=== PATIENT | male | born 1990 | race Caucasian/White ===

== ENCOUNTER 2018-09-20 08:26 | Inpatient (IN) | payer OTHER ==
[2018-09-20 08:57] VITALS: BMI 38.9
--- NOTE | 2018-09-20 08:58 | HP ---
CIWA Score Nausea/Vomitin Muscle Tremors: 2 Anxiety: 3 Agitation: 2 Paroxysmal Sweats: 1-Minimal Palms Moist Orientation: 0-Oriented Tacttile Disturbances: 1-Very Mild Itch/Numbness Auditory Disturbances: 1-Very Mild Visual Disturbances: 0-None Headache: 2-Mild CIWA-Ar Total Score: 14 - Admission Criteria OASAS Guidelines: Admission for Medically Managed Detox: Requires at least one of the followin. CIWA greater than 12 2. Seizures within the past 24 hours 3. Delirium tremens within the past 24 hours 4. Hallucinations within the past 24 hours 5. Acute intervention needed for co occurring medical disorder 6. Acute intervention needed for co occurring psychiatric disorder 7. Severe withdrawal that cannot be handled at a lower level of care (continued vomiting, continued diarrhea, abnormal vital signs) requiring intravenous medication and/or fluids 8. Patient presents the following: CIWA greater than 12 Admission Criteria Met: Admission criteria met Admission ROS S - HPI Chief Complaint: i need help to stop drinking alcohol Allergies/Adverse Reactions: Allergies Allergy/AdvReac Type Severity Reaction Status Date / Time No Known Allergies Allergy Verified 09/20/18 10:03 History of Present Illness: this 27 years old male with alcohol dependence,seeking detox,withdrawal symptom, seen in [facility] last night,given medications,had syncope last night never been in detox before had abrasion to nose and right hand nicotine dependence need helpto srop drinking alcohol and marijuana plan for out patient program after detox - Ebola screening Have you traveled outside of the country in the last 21 days: No Have you had contact with anyone from an Ebola affected area: No - Review of Systems Constitutional: Loss of Appetite, Malaise, Night Sweats, Changes in sleep, Weakness EENT: reports: Nose Congestion, Other (abrasion of nose) Respiratory: reports: No Symptoms reported Cardiac: reports: No Symptoms Reported GI: reports: Nausea, Poor Appetite, Abdominal cramping : reports: No Symptoms Reported Musculoskeletal: reports: Back Pain, Muscle Pain Integumentary: reports: Dryness Neuro: reports: Headache, Tremors Endocrine: reports: No Symptoms Reported Hematology: reports: No Symptoms Reported Psychiatric: reports: No Sypmtoms Reported, Judgement Intact, Mood/Affect Appropiate, Orientated x3, Anxious, other Other Systems: Reviewed and Negative Patient History - Patient Medical History Hx Anemia: No Hx Asthma: No Hx Chronic Obstructive Pulmonary Disease (COPD): No Hx Cancer: No Hx Cardiac Disorders: No Hx Congestive Heart Failure: No Hx Hypertension: No Hx Hypercholesterolemia: No Hx Pacemaker: No HX Cerebrovascular Accident: No Hx Seizures: No Hx Dementia: No Hx Diabetes: No Hx Gastrointestinal Disorders: No Hx Liver Disease: No Hx Genitourinary Disorders: No Hx Sexually Transmitted Disorders: No Hx Renal Disease (ESRD): No Hx Thyroid Disease: No Hx Human Immunodeficiency Virus (HIV): No (never been tested,would like to have test done) Hx Hepatitis C: No Hx Depression: No Hx Suicide Attempt: No Hx Bipolar Disorder: No Hx Schizophrenia: No Other Medical History: no suicidal,no homicidal - Patient Surgical History Past Surgical History: No - PPD History Previous Implant?: Yes Documented Results: Positive w/o proof - Smoking Cessation Smoking history: Never smoked Aproximately how many cigarettes per day: 2 Cigars Per Day: 0 Hx Chewing Tobacco Use: No Initiated information on smoking cessation: Yes 'Breaking Loose' booklet given: 09/20/18 - Substance & Tx. History Hx Alcohol Use: Yes Hx Substance Use: Yes Substance Use Type: Alcohol, Marijuana Hx Substance Use Treatment: No - Substances Abused Alcohol Route: Oral Frequency: Daily Amount used: 1 pint of vodka/6 packs of 12 ozs of beer Age of first use: 16 Date of Last Use: 09/19/18 Marijuana/Hashish Route: Smoking Frequency: Daily Amount used: 10$ Age of first use: 14 Date of Last Use: 09/19/18 Family Disease History - Family Disease History Family History: Denies Admission Physical Exam S - Vital Signs Vital Signs: Vital Signs Temperature 98.4 F 09/20/18 08:55 Pulse Rate 77 09/20/18 08:55 Respiratory Rate 18 09/20/18 08:55 Blood Pressure 114/74 09/20/18 08:55 O2 Sat by Pulse Oximetry (%) - Physical General Appearance: Yes: Moderate Distress, Tremorous, Irritable, Sweating, Anxious HEENTM: Yes: Normal ENT Inspection, LINDA, Pharynx Normal, Other (abrasion of nose) Respiratory: Yes: Within Normal Limits, Lungs Clear, Normal Breath Sounds Neck: Yes: Within Normal Limits, Supple, Trachea in good position Breast: Yes: Within Normal Limits Cardiology: Yes: Within Normal Limits, Regular Rhythm, Regular Rate, S1, S2 Abdominal: Yes: Within Normal Limits, Normal Bowel Sounds, Non Tender, Flat, Soft Genitourinary: Yes: Within Normal Limits Musculoskeletal: Yes: Back pain, Muscle Pain Extremities: Yes: Normal Range of Motion, Other (abrasion of fingers of right hand no bleeding) 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, Fully Oriented, Alert, Motor Strength 5/5 Integumentary: Yes: Dry Lymphatic: Yes: Within Normal Limits - Diagnostic (1) Alcohol dependence with uncomplicated withdrawal Current Visit: Yes Status: Acute (2) Marijuana dependence Current Visit: Yes Status: Acute (3) Syncope Current Visit: Yes Status: Acute (4) Abrasion of nose Current Visit: Yes Status: Acute (5) Abrasion of right hand and fingers Current Visit: Yes Status: Acute Cleared for Admission S - Detox or Rehab [facility] Level of Care: Medically Managed Detox Regimen/Protocol: Librium Inpatient Rehab Admission - Rehab Decision to Admit Inpatient rehab admission?: No
[2018-09-20] MEDS ORDERED: chlordiazePOXIDE HCL 25 MG CAPSULE PO PRN (09:09)
[2018-09-20] MEDS ORDERED: ACETAMINOPHEN 325 MG TABLET (FP) PO PRN (09:09)
[2018-09-20] MEDS ORDERED: IBUPROFEN 400 MG TABLET (FP) PO PRN (09:09)
[2018-09-20] MEDS ORDERED: P-EPHED 60MG/TRIPROLIDI 2.5MG TABLET PO PRN (09:09)
[2018-09-20] MEDS ORDERED: MAGNESIUM HYDROX 2400MG/30ML ORAL SUSPENSION 30 ML CUP PO PRN (09:09)
[2018-09-20] MEDS ORDERED: guaiFENesin/D-METHORPHAN HB 10 ML UNIT-DOSE CUPS PO PRN (09:09)
[2018-09-20] MEDS ORDERED: hydrOXYzine PAMOATE 50 MG CAPSULE (FP) PO PRN (09:09)
[2018-09-20] MEDS ORDERED: MENTHOL/PHENOL 1 EACH UD MM PRN (09:09)
[2018-09-20] MEDS ORDERED: MAG HYDROX/AL HYDROX/SIMETH 30 ML UNIT-DOSE CUP PO PRN (09:09)
[2018-09-20] MEDS ORDERED: LOPERAMIDE HCL 2 MG CAPSULE PO PRN (09:09)
[2018-09-20] MEDS ORDERED: MAGNESIUM CITRATE 300 ML BOTTLE PO PRN (09:09)
[2018-09-20] MEDS: chlordiazePOXIDE HCL 25 MG CAPSULE PO SCH ×3 (11:40→22:19)
[2018-09-20] MEDS: BACITRACIN 0.9 GM PACKET TP SCH ×2 (11:40→22:18)
[2018-09-20] MEDS: PRENATAL VITAMINS W/ FOLIC ACID TABLET (FP) PO SCH (11:40)
[2018-09-20] MEDS ORDERED: MELATONIN 5 MG TABLETS PO PRN (22:00)
[2018-09-20] MEDS ORDERED: THIAMINE HCL 100 MG TABLET (FP) PO SCH (22:00)
[2018-09-21] MEDS: chlordiazePOXIDE HCL 25 MG CAPSULE PO SCH ×3 (06:27→17:16)
[2018-09-21 10:03] LABS: ALBUMIN 3.7 g/dl (3.4-5.0); ALK PHOS 107 U/L (45-117); ANION GAP 12 MMOL/L (8-16); BILIRUBIN,TOTAL 0.4 mg/dL (0.2-1); BLOOD UREA NITROGEN 9 mg/dL (7-18); CALCIUM 7.8 mg/dL (8.5-10.1); CHLORIDE 109 mmol/L (98-107); CO2 22 mmol/L (21-32); CREATININE 0.9 mg/dL (0.55-1.3); GLUCOSE,RANDOM 115 mg/dL (74-106); POTASSIUM 3.9 mmol/L (3.5-5.1); SGOT/AST 25 U/L (15-37); SGPT/ALT 35 U/L (13-61); SODIUM 142 mmol/L (136-145); TOT PROT 7.3 g/dl (6.4-8.2)
[2018-09-21 10:07] LABS: HEMATOCRIT 39.3 % (35.4-49); MCH 30.6 pg (25.7-33.7); MCHC 33.1 g/dl (32.0-35.9); MEAN CELL VOLUME 92.5 fl (80-96); MEAN PLT VOLUME 8.8 fl (7.5-11.1); PLATELET COUNT 284 K/MM3 (134-434); RBC 4.25 M/mm3 (4.00-5.60); RDW 15.9 % (11.9-15.9); WHITE BLOOD COUNT 8.9 K/mm3 (4.0-10.0)
[2018-09-21] MEDS: BACITRACIN 0.9 GM PACKET TP SCH (10:25)
[2018-09-21] MEDS: PRENATAL VITAMINS W/ FOLIC ACID TABLET (FP) PO SCH (10:25)
--- NOTE | 2018-09-21 10:54 | PN ---
S CIWA - CIWA Score Nausea/Vomitin-Mild Nausea/No Vomiting Muscle Tremors: 3 Anxiety: 2 Agitation: 2 Paroxysmal Sweats: 1-Minimal Palms Moist Orientation: 1-Uncertain about Date Tacttile Disturbances: 0-None Auditory Disturbances: 0-None Visual Disturbances: 0-None Headache: 1-Very Mild CIWA-Ar Total Score: 11 S Progress Note (SOAP) Subjective: multiple superficial skin abrasion noted no acute bleeding scar tissue covered appears to be healing that patient reported getting better continue bacitracin oint tremor sweating anxiety headache Objective: 09/21/18 10:53 Vital Signs Temperature 98.9 F 09/21/18 09:46 Pulse Rate 66 09/21/18 09:46 Respiratory Rate 20 09/21/18 09:46 Blood Pressure 108/54 L 09/21/18 09:46 O2 Sat by Pulse Oximetry (%) Laboratory Last Values WBC 8.9 K/mm3 (4.0-10.0) 09/21/18 06:00 RBC 4.25 M/mm3 (4.00-5.60) 09/21/18 06:00 Hgb 13.0 GM/dL (11.7-16.9) 09/21/18 06:00 Hct 39.3 % (35.4-49) 09/21/18 06:00 MCV 92.5 fl (80-96) 09/21/18 06:00 MCH 30.6 pg (25.7-33.7) 09/21/18 06:00 MCHC 33.1 g/dl (32.0-35.9) 09/21/18 06:00 RDW 15.9 % (11.9-15.9) 09/21/18 06:00 Plt Count 284 K/MM3 (134-434) 09/21/18 06:00 MPV 8.8 fl (7.5-11.1) 09/21/18 06:00 Sodium 142 mmol/L (136-145) 09/21/18 06:00 Potassium 3.9 mmol/L (3.5-5.1) 09/21/18 06:00 Chloride 109 mmol/L (98-107) H 09/21/18 06:00 Carbon Dioxide 22 mmol/L (21-32) 09/21/18 06:00 Anion Gap 12 MMOL/L (8-16) 09/21/18 06:00 BUN 9 mg/dL (7-18) 09/21/18 06:00 Creatinine 0.9 mg/dL (0.55-1.3) 09/21/18 06:00 Creat Clearance w eGFR > 60 (>60) 09/21/18 06:00 Random Glucose 115 mg/dL (74-106) H 09/21/18 06:00 Calcium 7.8 mg/dL (8.5-10.1) L 09/21/18 06:00 Total Bilirubin 0.4 mg/dL (0.2-1) 09/21/18 06:00 AST 25 U/L (15-37) 09/21/18 06:00 ALT 35 U/L (13-61) 09/21/18 06:00 Alkaline Phosphatase 107 U/L (45-117) 09/21/18 06:00 Total Protein 7.3 g/dl (6.4-8.2) 09/21/18 06:00 Albumin 3.7 g/dl (3.4-5.0) 09/21/18 06:00 lab noted low ca++ Assessment: 09/21/18 10:54 withdrawal sx low calcium Plan: continue detox
[2018-09-21] MEDS ORDERED: CALCIUM 250MG/VIT-D 125 UNITS 1 COMBO TABLET PO SCH (11:00)
--- NOTE | 2018-09-21 11:42 | EKG ---
Test Reason : Blood Pressure : / mmHG Vent. Rate : 087 BPM Atrial Rate : 087 BPM P-R Int : 142 ms QRS Dur : 094 ms QT Int : 376 ms P-R-T Axes : 028 048 010 degrees QTc Int : 452 ms NORMAL SINUS RHYTHM NORMAL ECG NO PREVIOUS ECGS AVAILABLE Confirmed by Joni Joaquin MD ([id number]) on 09/21/2018 11:41:48 AM Referred By: Confirmed By:Joni Joaquin MD
[2018-09-21 17:16] VITALS: BP 112/70; PULSE 80; TEMP 98.4
--- NOTE | 2018-09-21 18:10 | DS ---
[facility] Detox Discharge Summary Admission Date: 09/20/18 Discharge Date: 09/21/18 - History Present History: Alcohol Dependence Additional Comments: Patient left AMA. Patient to follow up with PCP, if worsening symptoms are present patient to seek medical attention or go to local ED. - Physical Exam Results Vital Signs: Vital Signs Temperature 98.4 F 09/21/18 17:14 Pulse Rate 80 09/21/18 17:14 Respiratory Rate 18 09/21/18 17:14 Blood Pressure 112/70 09/21/18 17:14 O2 Sat by Pulse Oximetry (%) - Medication Discharge Medications: Ambulatory Orders NK [No Known Home Medication] 09/20/18 - Diagnosis (1) Abrasion of nose Status: Acute (2) Abrasion of right hand and fingers Status: Acute (3) Alcohol dependence with uncomplicated withdrawal Status: Acute (4) Marijuana dependence Status: Acute - AMA Did Patient Leave Against Medical Advice: Yes
[2018-09-22] MEDS ORDERED: chlordiazePOXIDE 5 MG CAPSULE PO SCH (11:00)
[2018-09-23] MEDS ORDERED: chlordiazePOXIDE HCL 10 MG CAPSULE PO SCH (11:00)
== END 2018-09-21 18:15 | disposition left against medical advice (07) | DRG 770 ==
LOC: YASAS 08:26 → Y3N 09:48
PROVIDERS: ADMIT Surgery; ATTEND Surgery
PROC: HZ2ZZZZ Detoxification Services for Substance Abuse Treatment (ICD-10-PCS; principal; 2018-09-20)
DX: F10.230 Alcohol dependence with withdrawal, uncomplicated (principal); F12.20 Cannabis dependence, uncomplicated; F17.210 Nicotine dependence, cigarettes, uncomplicated; R55 Syncope and collapse; S00.31XD Abrasion of nose, subsequent encounter; S60.41 Abrasion of fingers; X58.XXXD Exposure to other specified factors, subsequent encounter
CPT/HCPCS: 36415; 71046-TC-FY; 80053; 85027; 86593; 93005; 93010